=== PATIENT | male | born 1985 | race Hispanic/Latino ===

== ENCOUNTER 2020-04-07 14:38 | Emergency (ER) | payer OTHER, SELFPAY ==
[2020-04-07] MEDS ORDERED: Lorazepam 2 MG/ML VIAL ONE (14:51)
[2020-04-07] MEDS ORDERED: Acetaminophen 500 MG TAB ONE (14:53)
[2020-04-08 14:28] LABS: SARS-CoV-2 MS2 Positive; SARS-CoV-2 N Gene Negative; SARS-CoV-2 S Gene Negative; SARS-CoV-2 by NAA Not Detected (NotDetected); SARS-CoV-2 orf1ab Negative
== END 2020-04-07 16:15 | disposition home or self-care (01) ==
LOC: NAV ERS 14:38
DX: T78.40XA Allergy, unspecified, initial encounter (principal); F41.9 Anxiety disorder, unspecified; Z20.828 Contact with and (suspected) exposure to other viral communicable diseases
CPT/HCPCS: 87635; 96374; J2060; U0003

== ENCOUNTER 2020-06-01 12:02 | Emergency (ER) | payer SELFPAY ==
[2020-06-01] MEDS ORDERED: Boostrix 0.5 ML VIAL ONE ×2 (12:32→12:35)
[2020-06-01] MEDS ORDERED: Lidocaine 1% (PF) 30 ML VIAL ONE (12:42)
--- NOTE | 2020-06-01 12:43 | RAD ---
EXAM: 3 views of the left hand COMPARISON: None HISTORY: Hand pain FINDINGS: 3 views of the hand shows no evidence of acute fracture or dislocation. No degenerative mague nges are seen. No soft tissue swelling is present. IMPRESSION: Unremarkable exam.
[2020-06-01] MEDS ORDERED: Bacitracin 1 PK ONE (13:04)
== END 2020-06-01 13:13 | disposition home or self-care (01) ==
LOC: NAV ERS 12:02
DX: S61.432A Puncture wound without foreign body of left hand, initial encounter (principal); S61.412A Laceration without foreign body of left hand, initial encounter; L50.9 Urticaria, unspecified; F41.9 Anxiety disorder, unspecified; W26.8XXA Contact with other sharp object(s), not elsewhere classified, initial encounter
CPT/HCPCS: 12001; 90471; 90715; J2001